=== PATIENT | male | born 1945 | race Caucasian/White ===

== ENCOUNTER 2024-09-05 18:16 | Inpatient (IN) | payer OTHER, SELFPAY ==
[2024-09-05] VITALS (7 sets, daily range): BP systolic 126–161; BP diastolic 68–99; BMI 30.5
[2024-09-05 13:38] LABS: Glucose - Point of Care 463 mg/dl (70-99)
--- NOTE | 2024-09-05 13:55 | ED.GENMED ---
History of Present Illness
General
Chief Complaint: Blood Sugar Problem
Source: patient
Exam Limitations: none
Time Seen by Provider: 09/05/24 13:34
Nursing documentation reviewed up to this point in time: agreed with
History of Present Illness
History of Present Illness:
78-year-old male past medical history of stroke, [place] presenting to the emergency department after he was helping his friend move some boxes felt lightheaded fell to the ground was described as losing consciousness having some few seconds of. He says
when he woke up he was being asked a lot of questions felt mildly confused at the time but at this point is fully asymptomatic denies any specific symptoms at this time. Otherwise felt well prior. According to EMS arrival his blood sugar levels
was 68 which increased to 129 after receiving oral glucose
Review of Systems
Review of Systems
Allergies reviewed?: Yes
All Other Systems: ROS reviewed and negative except as documented in HPI and ROS
Phy Exam
Physical Exam
Physical Exam:
GENERAL: Alert , in no apparent distress
EYE: pupils equal and reactive
NECK: Supple, no significant adenopathy.
ENT: o/p clr, mmm.
CARDIAC: Central chest with a red rash mild tenderness to palpation. No bleeding. Regular rate and rhythm .
LUNGS: Clear breath sounds bilaterally, no acute respiratory distress, no wheezes/rales/rhonchi
ABDOMEN: Soft, without focal tenderness, no r/g, no cvat
NEUROLOGICAL: Alert and oriented, no focal neuro deficits
SKIN: Warm and dry, skin intact.
MUSCULOSKELETAL: No edema, well perfused.
PSYCH: Normal and appropriate interaction.
Course
Orders/Labs/Results
Orders:
Orders
09/05/24 13:38
EKG [Electrocardiogram (*1)] Urgent
Reason for Study: Fatigue / Weakness
EKG- Treatment ONCE
09/05/24 13:40
CMP [Comprehensive Metabolic Panel] Urgent
Complete Blood Count/With Diff Urgent
Magnesium Urgent
Comment: ADD ON
09/05/24 13:43
CXR2 [CR Chest - 2 Views ] Urgent
Comment:
Reason For Exam: abrasion on chest
09/05/24 13:44
Troponin I Urgent
09/05/24 14:21
0.9% Sodium Chloride 1000 ml [Nss] 1,000 ml IV BOLUS
09/05/24 14:28
CT Head W/o Iv Contrast Urgent
Comment:
Reason For Exam: new onset seizure
09/05/24 14:29
Add On- LAB Urgent
Tests Added?: magnesium
09/05/24 15:15
Lactic Acid Urgent
09/05/24 16:04
Urinalysis Reflex To Culture Urgent
Date Specimen was Collected: 09/05/24
Time Specimen was Collected: 15:59
Urine Microscopic Reflex Cult Urgent
09/05/24 17:16
Add On- LAB Urgent
Tests Added?: prolactin, UDS, creatine kinase
09/05/24 17:17
MRI Brain [MR Brain Without Contrast] Urgent
Comment:
Reason For Exam: seziure
Recent pill cam endoscopy?: No
Abnormal Lab Results
09/05/24 09/05/24 09/05/24
13:36 13:40 15:15
MCV 99.0 H fL
(80.0-94.0)
MCH 34.0 H pg
(27.0-31.0)
Plt Count 112 L 10^3/uL
(130-400)
MPV 10.6 H fL
(7.4-10.4)
Immature Gran % 0.8 H %
(0-0.5)
Chloride 110 H mmol/L
(98-107)
Carbon Dioxide 20 L mmol/L
(22-30)
BUN 22 H mg/dl
(9-20)
Glucose 102 H mg/dl
(70-99)
Lactic Acid 2.1 H mmol/L
(0.7-2.0)
Ur Occult Blood Reflex
Urine Albumin (Reflex)
POC Glucose 463 H* mg/dl
(70-99)
09/05/24
16:04
MCV
MCH
Plt Count
MPV
Immature Gran %
Chloride
Carbon Dioxide
BUN
Glucose
Lactic Acid
Ur Occult Blood Reflex Trace A
(Negative)
Urine Albumin (Reflex) 2+ A
(Neg - Trace)
POC Glucose
09/05/24 13:40
09/05/24 13:40
Vital Signs
Initial and Last Documented VS:
Initial Vital Signs
Temp Pulse Resp
97.7 F 77 22
09/05/24 13:34 09/05/24 13:34 09/05/24 13:34
Last Documented Vital Signs
Temp Pulse Resp BP Pulse Ox
97.7 F 68 21 161/79 95
09/05/24 13:34 09/05/24 17:30 09/05/24 17:30 09/05/24 17:00 09/05/24 17:30
MDM/Problems Addressed
MDM/Problems Addressed:
78-year-old male presenting to the emergency department today after an episode where he felt lightheaded passed out to the ground had a brief episode of jerking movement otherwise is asymptomatic at this point. He was found to have slightly low
sugar level of 60 via EMS and was given sugar at the scene with increasing sugar level to 129. He denies any current symptoms denies any symptoms prior to the episode.
Update 1400: Patient's family arrived including spouse and brother that witnessed the event. He claims that he seemed to feel lightheaded they helped him to the ground without specific trauma. He then had full body convulsions that was described
as at least 10 minutes. He then woke up after multiple sternal rubs. He seemed to be very confused and was thrashing around for a few minutes but then seemed to calm down by the time that EMS arrived. He was very confused for additional 10 to 15
minutes or so after the event and then EMS arrived at the scene. Here patient asymptomatic throughout stay labs showing slightly elevated chloride normal sodium slightly elevated lactic acid of 2.1 normal glucose of [address]
normal. Case discussed with neurology additional testing and MRI. Patient will be admitted for further evaluation.
*Critical Care Note
Total Time (30-74mins, 75-104mins- exclusive of procedures): Not Applicable
ED Attending Note
-
Portions of this chart may have been created with voice recognition software.� Occasional wrong word or��sound alike� substitutions may have occurred due to the inherent limitations of voice recognition software.
Discharge Plan
Departure
Patient Disposition: Admit
Date of Disposition: 09/05/24
Time of Disposition: 17:44
Admit to: Telemetry
Admit to doctor: Jeffery
Presentation/result/management discussed w/ accepting MD/DO: Hospitalist
Patient with high blood pressure during this ER visit?: No
Condition: Good
Covid-19: Not Applicable
Discharge Problem:
Observed seizure-like activity
Prescriptions:
No Action
metoprolol succinate 50 mg tablet extended release 24 hr
50 mg PO DAILY
valacyclovir 500 mg tablet
500 mg PO DAILY
meloxicam 7.5 mg tablet
7.5 mg PO DAILY
pantoprazole 40 mg tablet,delayed release (DR/EC)
40 mg PO DAILY
erythromycin 5 mg/gram (0.5 %) ointment
1 applic LEFT EYE BID
allopurinol 300 mg tablet
300 mg PO DAILY
ramipril 5 mg capsule
5 mg PO DAILY
ezetimibe 10 mg tablet
10 mg PO DAILY
cyclosporine [Restasis] 0.05 % dropperette
1 drp LEFT EYE BID
omega-3 acid ethyl esters 1 gram capsule
4 g PO DAILY
fenofibrate nanocrystallized 145 mg tablet
145 mg PO DAILY
aspirin 81 mg Tablet,Delayed Release (Dr/Ec)
81 mg PO DAILY
Referrals:
Lorenzo Wallace DO [Family Provider] -
Interventions
Interventions:
*Risk Screen - Suicide Last Done: 09/05/24 13:45
*General Assessment Last Done: 09/05/24 13:45
*Neglect/Abuse Screening Last Done: 09/05/24 13:45
ED- Fall Risk Assessment Last Done: 09/05/24 13:46
*ED COVID-19 Vaccine History Last Done: 09/05/24 13:45
ED- Neurological Assessment Last Done: 09/05/24 13:41
Discharge Date and Time
Print Language: KITTITIAN
[2024-09-05 14:02] LABS: % Eosinophils 3.1 % (0-6); % Immature Granulocytes 0.8 % (0-0.5); % Monocytes 7.1 % (1.7-9.3); Absolute Basophils 0.1 10^3/uL (0-0.2); Absolute Eosinophils 0.2 10^3/uL (0-0.7); Absolute Lymphocytes 1.2 10^3/uL (1.2-3.4); Absolute Monocytes 0.4 10^3/uL (0.1-0.6); Absolute Neutrophils 3.4 10^3/uL (1.4-6.5); Hematocrit 47.5 % (39.0-52.0); Hemoglobin 16.3 g/dL (13.0-18.0); Mean Corp Hgb Conc. 34.3 g/dL (33.0-37.0); Mean Platelet Volume 10.6 fL (7.4-10.4); Nucleated Red Blood Cells % 0 % (-); Platelet Count 112 10^3/uL (130-400); Red Cell Dist. Width 13.7 % (11.5-14.5); White Blood Cell Count 5.2 10^3/uL (4.8-10.8)
[2024-09-05 14:07] LABS: ALT (SGPT) 23 U/L (0-50); AST (SGOT) 45 U/L (17-59); Albumin 4.6 g/dl (3.5-5.0); Alkaline Phosphatase 42 U/L (38-126); Blood Urea Nitrogen 22 mg/dl (9-20); Calcium 9.3 mg/dl (8.4-10.2); Carbon Dioxide 20 mmol/L (22-30); Chloride 110 mmol/L (98-107); Glucose 102 mg/dl (70-99); Sodium 145 mmol/L (135-145); Total Bilirubin 0.6 mg/dl (0.2-1.3); Total Protein 7.3 g/dl (6.3-8.2); eGFR 56.58
[2024-09-05 14:41] LABS: Troponin I < 0.012 ng/ml
[2024-09-05 14:57] LABS: Magnesium 1.7 mg/dl (1.6-2.3)
[2024-09-05] MEDS: NSS 1000 IV (15:16)
[2024-09-05 15:33] LABS: Lactic Acid 2.1 mmol/L (0.7-2.0)
[2024-09-05 16:34] LABS: Urine Albumin 2+ (Neg - Trace); Urine Bilirubin Negative (Negative); Urine Color Yellow; Urine Glucose Negative (Negative); Urine Ketone Negative (Negative); Urine Leukocyte Negative (Negative); Urine Nitrite Negative (Negative); Urine Occult Blood Trace (Negative); Urine Urobilinogen Negative (Neg - 1+)
[2024-09-05 16:55] LABS: Urine Squamous Cell 0-2 /LPF (Few)
[2024-09-05 16:56] LABS: Urine Hyaline Cast 0-2 /LPF (0-2)
[2024-09-05 16:57] LABS: Urine Red Blood Cell 0-2 /HPF (0-2); Urine Sperm Seen; Urine White Cell 0-2 /HPF (0-5)
[2024-09-05 17:03] LABS: Urine Character Clear (Clear)
--- NOTE | 2024-09-05 17:41 | HPS.HSE ---
Family Physician
<Nick Martines MD - Last Filed: 09/06/24 08:22>
-
Family Physician: Lorenzo Wallace
Chief Complaint
<Nick Martines MD - Last Filed: 09/06/24 08:22>
-
AMS, poss seizure
History of Present Illness
78-year-old male with a past medical history of CVA, IA, HTN, HL, gout, and GERD presents with altered mental status and tonic-clonic shaking concerning for new onset seizure activity. Patient was helping his sister in law move some boxes. Family
reports patient feeling lightheaded, and lost consciousness. Family said that there was full body shaking movements for 10-15 minutes, followed by 15 minutes of confusion. EMS arrived, found his blood sugar to be 68, which increased to 129 after
receiving oral glucose.
Medical History
<Nick Martines MD - Last Filed: 09/06/24 08:22>
Past Medical History
Past Medical History: Reports Other
Additional Past Medical History:
CVA
IA
HTN
HL
Gout
GERD
OA
Past Surgical History: Reports Appendectomy and Other (Right wrist surgery, left eye corneal transplant)
Social History
Tobacco: Former Smoker
Alcohol: Occasional
Drug: None
Personal:
Living: With Family
Family History
Family History: Other (No family history of seizures)
Allergies / Home Medications
Allergies reflects when Allergies were last updated in [facility].
Home Medications with original date entered in [facility]
Allergy/Medication List:
Allergies
Allergy/AdvReac Type Severity Reaction Status Date / Time
No Known Allergies Allergy Verified 09/05/24 14:29
Home Medications Table - record
�Medication �Instructions �Recorded �Confirmed
allopurinol 300 mg tablet 300 mg PO DAILY 09/05/24 09/05/24
aspirin 81 mg tablet,delayed 81 mg PO DAILY 09/05/24 09/05/24
release
cyclosporine 0.05 % eye drops in a 1 drp LEFT EYE BID 09/05/24 09/05/24
dropperette (Restasis)
erythromycin 5 mg/gram (0.5 %) eye 1 applic LEFT EYE BID 09/05/24 09/05/24
ointment
ezetimibe 10 mg tablet 10 mg PO DAILY 09/05/24 09/05/24
fenofibrate nanocrystallized 145 145 mg PO DAILY 09/05/24 09/05/24
mg tablet
meloxicam 7.5 mg tablet 7.5 mg PO DAILY 09/05/24 09/05/24
metoprolol succinate 50 mg 50 mg PO DAILY 09/05/24 09/05/24
tablet,extended release 24 hr
omega-3 acid ethyl esters 1 gram 4 g PO DAILY 09/05/24 09/05/24
capsule
pantoprazole 40 mg tablet,delayed 40 mg PO DAILY 09/05/24 09/05/24
release
ramipril 5 mg capsule 5 mg PO DAILY 09/05/24 09/05/24
valacyclovir 500 mg tablet 500 mg PO DAILY 09/05/24 09/05/24
Review of Systems
<Nick Martines MD - Last Filed: 09/06/24 08:22>
-
A 12 point ROS was completed and negative except as noted: Yes
Physical Exam
<Nick Martines MD - Last Filed: 09/06/24 08:22>
Vital Signs
Vital Signs
Temp Pulse Resp BP Pulse Ox
97.7 F 68 21 161/79 95
09/05/24 13:34 09/05/24 17:30 09/05/24 17:30 09/05/24 17:00 09/05/24 17:30
<Vinny Gil MD - Last Filed: 09/05/24 19:07>
Physical Exam
General: Well Developed, Well Nourished and No Apparent Distress
HEENT: NormoCephalic, Moist mucous membranes and Atraumatic
Respiratory: Clear
Cardiac: S1/S2 and Regular Rhythm; No Murmur or Rub
GI: Soft, Non Tender, Non Distended and Normal Bowel Sounds; No Organomegaly
Rectal: Deferred by Provider
Musculoskeletal: No Clubbing, No Cyanosis and No Edema
Skin: No Rash
Neuro: Nonfocal/grossly intact
Laboratory Results
<Nick Martines MD - Last Filed: 09/06/24 08:22>
-
09/05/24 13:40
09/05/24 13:40
Laboratory Results
Lactic Acid 2.1 mmol/L (0.7-2.0) H 09/05/24 15:15
Total Bilirubin 0.6 mg/dl (0.2-1.3) 09/05/24 13:40
AST 45 U/L (17-59) 09/05/24 13:40
ALT 23 U/L (0-50) 09/05/24 13:40
Alkaline Phosphatase 42 U/L (38-126) 09/05/24 13:40
Troponin I < 0.012 ng/ml 09/05/24 13:44
Impression/Plan
<Nick Martines MD - Last Filed: 09/06/24 08:22>
-
#Altered mental status
#Possible seizure activity
Head CT neg
Consult neurology, follow-up brain MRI
Check CK, prolactin, urine analysis, UDS
Neurology recommends maintain off AED for now
Ordered Ativan 2 mg IV as needed seizure activity
#History of IA
#History of CVA
Continue aspirin, Zetia, Tricor
#Essential hypertension
Continue metoprolol, ramipril
#Hyperlipidemia
Continue Zetia, Tricor
#GERD
Continue PPI
#Gout
Continue allopurinol
#Osteoarthritis of the knees
Continue Mobic
DVT prophylaxis�subcu Lovenox
Full code
Updated family at bedside 09/05
Total time spent to see the patient on the floor, examine the patient, review data and lab results, discuss treatment plan with patient, nursing staff around 60 minutes.
[2024-09-05 18:06] LABS: Creatine Phosphokinase 135 U/L (55-170)
[2024-09-05 18:21] LABS: Amphetamines Negative (Negative); Barbiturates Negative (Negative); Benzodiazepines Negative (Negative); Buprenorphine Negative (Negative); Cocaine Negative (Negative); Marijuana Negative (Negative); Methadone Negative (Negative); Methamphetamines Negative (Negative); Opiates Negative (Negative); Phencyclidine Negative (Negative); Tricyclic Antidepressants Negative (Negative)
[2024-09-05 18:23] LABS: Prolactin 26.5 ng/ml (3.7-17.9)
[2024-09-05] MEDS: 0.45%NACL 1000 IV (20:50)
[2024-09-05] MEDS: LOVENOX 40 MG SC (20:51)
[2024-09-05] MEDS: RESTASIS 0.05% OPHTHALMIC EMULSION 1 DROPS LEFT EYE (20:52)
[2024-09-05] MEDS: ERYTHROMYCIN 0.5% OPHTHALMIC OINTMENT 1 APPLIC LEFT EYE (20:53)
[2024-09-05 21:24] LABS: Glucose - Point of Care 274 mg/dl (70-99)
--- NOTE | 2024-09-05 21:53 | PTCARENOTE ---
Pt received at 1999. Pt able to stand and walk from stretcher to bed. Pt AAOX3, VSS, and oriented to room. No c/o pain/discomfort reported at this time. No seizure activity noted at this time. Seizure precautions in place, pt NSR on tele. Pt able to
make needs known, call clarke within reach
[2024-09-06] VITALS (8 sets, daily range): BP systolic 147–168; BP diastolic 64–79
[2024-09-06 07:56] LABS: Hematocrit 42.5 % (39.0-52.0); Hemoglobin 14.1 g/dL (13.0-18.0); Mean Corp Hgb Conc. 33.2 g/dL (33.0-37.0); Mean Corpuscular Volume 99.5 fL (80.0-94.0); Mean Platelet Volume 11.5 fL (7.4-10.4); Platelet Count 107 10^3/uL (130-400); Red Blood Cell Count 4.27 10^6/uL (4.70-6.10); Red Cell Dist. Width 14.1 % (11.5-14.5); White Blood Cell Count 5.9 10^3/uL (4.8-10.8)
[2024-09-06] MEDS: ERYTHROMYCIN 0.5% OPHTHALMIC OINTMENT 1 APPLIC LEFT EYE ×2 (08:01→19:14)
[2024-09-06] MEDS: ZETIA 10 MG PO (08:01)
[2024-09-06] MEDS: ALTACE 5 MG PO (08:01)
[2024-09-06] MEDS: RESTASIS 0.05% OPHTHALMIC EMULSION 1 DROPS LEFT EYE ×2 (08:01→19:14)
[2024-09-06] MEDS: TOPROL XL 50 MG PO (08:01)
[2024-09-06] MEDS: ASPIR LOW (ENTERIC COATED) 81 MG PO (08:01)
[2024-09-06] MEDS: MOBIC 7.5 MG PO (08:01)
[2024-09-06] MEDS: PROTONIX 40 MG PO (08:01)
[2024-09-06] MEDS: TRICOR 145 MG PO (08:01)
[2024-09-06] MEDS: VALTREX 500 MG PO (08:04)
[2024-09-06] MEDS: ZYLOPRIM 300 MG PO (08:04)
--- NOTE | 2024-09-06 08:12 | CON.NEURO ---
Consultation
Order
Date of Consultation: 09/06/24
Requesting Provider: Nick Martines MD
Reason for Consult: seizure
CC: passed out
HPI: This is an 78-year-old man who presented to [facility] on September 05, 2024 with a spell.
Mr. Valencia states that he 'passed out'. He reportedly was walking into the house after carrying a box when he suddenly lost consciousness. His spouse observed that his left knee gave out, his legs wobbled, and he collapsed, stiffening up with eyes
half-open. The episode lasted approximately 15 minutes, during which he had 'moisture' around his mouth. No reports of facial weakness, rhythmic movements, UI, tongue injury, cyanosis.
The patient received oral glucose of FS of 60. Mr. Valencia remembers paramedics arriving to the house he was in. Based on EMS report the patient was confused, crying but consolable. Upon arrival at the ER in the ED staff removed his shirt and the
patient had a large fresh red shelley to the sternal area. Patient did not know that got there and denies any pain. Shelley looks like someone did CPR. No family member or [employer] on the scene stated that CPR was done. No BP recording is
available HR 94.
The patient denies any history of seizures, head trauma, encephalitis, or meningitis. He reports being fully independent in daily activities, including walking and driving, and manages his medications independently, except for assistance with eye
drops. He denies any recent changes in medications
ER VS: 139/79, 77, afebrile.
Glucose-463 (13:36).
EKG: NSR, QTc Int : 444 m
PDMP:Tramadol Hcl 50 Mg�30 tabs filled in on 04/11/2024, 07/05/2024
Labs: gluc 87m normal Na, WBC, lactic acid-2.1, Mg-1.7, normal Ca, prolactin-25.5(3.7-17.9)
Brain MRI wo callie-moderate atrophy with sequelae of moderate small vessel ischemic disease. Scattered foci of blooming artifact within the bilateral basal ganglia as well as the bilateral parietal and frontal lobes consistent with prior
microhemorrhage.
Routine EEG(09/06/2024) PDR slowing, no epileptiform abnormalities.
PMH: CAD, h/o stroke, thrombocytopenia, HTN, DLP, gout, BPH
PSH: BL cataract surgery, L corneal transplant, right wrist surgery, appendectomy
SH:; retired; former smoker; +social ET[employer] use
FH:not contributory to current presentation
All:NKDA
ROS:Constitutional: Negative. Negative for chills, fever and unexpected weight change.
HENT: Negative for ear pain, hearing loss, tinnitus and trouble swallowing.
Eyes: positive for impaired vision
Respiratory: Negative for cough, choking and shortness of breath.
Cardiovascular: Negative for chest pain, palpitations and leg swelling.
Gastrointestinal: Negative for abdominal pain and vomiting.
Endocrine: Negative. Negative for cold intolerance.
Genitourinary: positive for urinary urgency.
Musculoskeletal: Negative for back pain, gait problem, neck pain and neck stiffness.
Skin: Negative for rash.
Allergic/Immunologic: Negative. Negative for immunocompromised state.
Neurological: positive for a spell
Psychiatric/Behavioral: Negative for behavioral problems, confusion and hallucinations.
General: Well developed. In no acute distress. Masked facies
Cardio: Regular rate and rhythm without murmur. Extremities are without cyanosis or edema.
Neuro:
Mental Status: Alert, oriented to person, place, and date. Normal attention and recall. Good fund of knowledge. Follows complex requests across the midline. Comprehension, naming, and repetition intact. I
Cranial Nerves: . Pupils are equally round and reactive to light. EOMs full. Visual burdick full to confrontation. No ptosis. No nystagmus. V1-V3 intact to light touch and pinprick bilaterally, symmetric. Face symmetric. Normal hearing AU.
The palate elevated well. SCMs and traps 5/5. Tongue midline. No dysarthria.
Motor: Normal bulk and tone. No pronator or arm drift. Strength 5/5 throughout. No clonus.
Reflexes: limited exam due to positioning
Sensory: normal vibration at the ankles and toes
Coordination: No dysmetria or tremor.
Gait: deferred
Assessment and Plan:
I. Symptomatic seizure
II. Cerebral microvascular disease with microhemorrhages. ? Amyloid angiopathy
III. Hypoglycemia, hypomagnesia
-Fall and seizure precautions
-Hypoglycemia workup
-No AED
-No driving for 6 months
-OP neurology follow up in 2-3 weeks
I personally reviewed all radiology and labs along with past medical records pertinent to current medical problems. Total time spent in patient care is 60 minutes.
Thank you for allowing us to participate in the care of this patient. Please do not hesitate to contact us with any questions or concerns.
Subjective/Objective
Subjective Data
Date of Service: September 06, 2024
Objective Data
Vital Signs
Temp Pulse Resp BP Pulse Ox
36.6 C 59 18 150/71 95
09/06/24 07:08 09/06/24 07:08 09/06/24 07:08 09/06/24 07:08 09/06/24 07:08
Lab Results
09/06/24 06:38
Sodium 145 mmol/L (135-145) 09/05/24 13:40
Potassium 4.0 mmol/L (3.5-5.1) 09/05/24 13:40
BUN 22 mg/dl (9-20) H 09/05/24 13:40
Glucose 102 mg/dl (70-99) H 09/05/24 13:40
Calcium 9.3 mg/dl (8.4-10.2) 09/05/24 13:40
Ur Buprenorphine Negative (Negative) 09/05/24 16:04
Patient Allergies
No Known Allergies Allergy (Verified 09/05/24 14:29)
Medications
-
Active Medications
Generic Name Dose Route Start Last Admin
Trade Name Freq PRN Reason Stop Dose Admin
Acetaminophen 650 mg 09/05/24 19:41
Acetaminophen 325 Mg Tablet PO 10/03/24 19:40
Q4HPRN PRN
mild pain/HENSON/temp> 100.4F
Al Hydrox/Mg Hydrox/Simethicone 30 ml 09/05/24 19:41
Mag/Al/Simethicone Suspension 30 Ml Cup PO 10/03/24 19:40
Q6HPRN PRN
Heartburn
Allopurinol 300 mg 09/06/24 08:00
Allopurinol 300 Mg Tablet PO 10/04/24 07:59
DAILY CHIKA
Aspirin 81 mg 09/06/24 08:00
Aspirin 81 Mg (Enteric Coated) Tablet PO 10/04/24 07:59
DAILY CHIKA
Cyclosporine 1 drops 09/05/24 20:00 09/05/24 20:52
Cyclosporine 0.05% (Ophthalmic Emulsion) 10 Drop Droperette LEFT EYE 10/03/24 19:59 1 drops
BID CHIKA Administration
Ezetimibe 10 mg 09/06/24 08:00
Ezetimibe (Zetia) 10 Mg Tablet PO 10/04/24 07:59
DAILY CHIKA
Enoxaparin Sodium 40 mg 09/05/24 19:41 09/05/24 20:51
Enoxaparin Sodium 40 Mg/0.4 Ml Syringe SC 10/03/24 19:40 40 mg
QPM CHIKA Administration
Erythromycin 0 applic 09/05/24 20:00 09/05/24 20:53
Erythromycin 0.5% (Ophthalmic Ointment) 1 Gram Tube LEFT EYE 09/15/24 19:59 1 applic
BID CHIKA Administration
Fenofibrate 145 mg 09/06/24 08:00
Fenofibrate 145 Mg Tablet PO 10/04/24 07:59
DAILY CHIKA
Sodium Chloride 1,000 mls @ 75 mls/hr 09/05/24 19:41 09/05/24 20:50
0.45%Nacl IV 1,000 mls
.[id number] CHIKA Administration
Lorazepam 2 mg 09/05/24 19:41
Lorazepam 2 Mg/Ml Vial IV 10/03/24 19:40
Q4HPRN PRN
prolonged seizure
Meloxicam 7.5 mg 09/06/24 08:00
Meloxicam (Mobic) 7.5 Mg Tablet PO 10/04/24 07:59
DAILY CHIKA
Metoprolol Succinate 50 mg 09/06/24 08:00
Metoprolol 50 Mg Extended Release Tablet PO 10/04/24 07:59
DAILY CHIKA
Ondansetron HCl 4 mg 09/05/24 19:41
Ondansetron 4 Mg/2 Ml Vial IV 10/03/24 19:40
Q6HPRN PRN
nausea and vomiting
Oxycodone HCl 5 mg 09/05/24 19:41
Oxycodone 5 Mg Regular Release Tablet PO 09/19/24 19:40
Q4HPRN PRN
moderate pain
Pantoprazole Sodium 40 mg 09/06/24 08:00
Pantoprazole 40 Mg Delayed Release Tablet PO 10/04/24 07:59
DAILY CHIKA
Ramipril 5 mg 09/06/24 08:00
Ramipril (Altace) 5 Mg Capsule PO 10/04/24 07:59
DAILY CHIKA
Senna/Docusate Sodium 1 tablet 09/05/24 19:41
Docusate W/Senna (Katie-Colace) Tablet PO 10/03/24 19:40
BIDPRN PRN
constipation
Sodium Chloride 0 flush 09/05/24 20:00
Sodium Chloride 0.9% (Flush) Syringe IV 10/03/24 19:59
PER PROTOCOL CHIKA
Sodium Chloride 1 ml 09/05/24 19:58
Nss (Pf) 10 Ml Vial For Ativan 2 Mg Dose IV 10/03/24 19:57
Q4HPRN PRN
IV LORAZEPAM DILUTION
Valacyclovir HCl 500 mg 09/06/24 08:00
Valacyclovir Hcl 500 Mg Tablet PO 09/16/24 07:59
DAILY CHIKA
Home Medications
�Medication �Instructions �Recorded
allopurinol 300 mg tablet 300 mg PO DAILY Gout 09/05/24
aspirin 81 mg tablet,delayed 81 mg PO DAILY Blood Clot 09/05/24
release Prevention/Tx
cyclosporine 0.05 % eye drops in a 1 drp LEFT EYE BID DRY EYES 09/05/24
dropperette (Restasis)
erythromycin 5 mg/gram (0.5 %) eye 1 applic LEFT EYE BID Eye Condition 09/05/24
ointment
ezetimibe 10 mg tablet 10 mg PO DAILY High Cholesterol 09/05/24
fenofibrate nanocrystallized 145 145 mg PO DAILY High Cholesterol 09/05/24
mg tablet
meloxicam 7.5 mg tablet 7.5 mg PO DAILY Pain 09/05/24
metoprolol succinate 50 mg 50 mg PO DAILY Heart 09/05/24
tablet,extended release 24 hr Disease/Condition
omega-3 acid ethyl esters 1 gram 4 g PO DAILY 09/05/24
capsule
pantoprazole 40 mg tablet,delayed 40 mg PO DAILY Gastrointestinal 09/05/24
release Issue
ramipril 5 mg capsule 5 mg PO DAILY Blood Pressure 09/05/24
valacyclovir 500 mg tablet 500 mg PO DAILY Infection 09/05/24
Vital Signs and Labs
-
Vital Signs and Labs:
Vital Signs
Temp Pulse Resp BP Pulse Ox
36.4 C 54 17 154/64 95
09/06/24 12:20 09/06/24 12:20 09/06/24 12:20 09/06/24 12:20 09/06/24 12:20
Lab Results
09/06/24 06:38
09/06/24 06:38
Sodium 144 mmol/L (135-145) 09/06/24 06:38
Potassium 3.9 mmol/L (3.5-5.1) 09/06/24 06:38
BUN 21 mg/dl (9-20) H 09/06/24 06:38
Glucose 87 mg/dl (70-99) 09/06/24 06:38
Calcium 8.9 mg/dl (8.4-10.2) 09/06/24 06:38
Ur Buprenorphine Negative (Negative) 09/05/24 16:04
Medications
-
Medications:
Generic Name Dose Route Start Last Admin
Trade Name Freq PRN Reason Stop Dose Admin
Acetaminophen 650 mg 09/05/24 19:41
Acetaminophen 325 Mg Tablet PO 10/03/24 19:40
Q4HPRN PRN
mild pain/HENSON/temp> 100.4F
Al Hydrox/Mg Hydrox/Simethicone 30 ml 09/05/24 19:41
Mag/Al/Simethicone Suspension 30 Ml Cup PO 10/03/24 19:40
Q6HPRN PRN
Heartburn
Allopurinol 300 mg 09/06/24 08:00 09/06/24 08:04
Allopurinol 300 Mg Tablet PO 10/04/24 07:59 300 mg
DAILY CHIKA Administration
Aspirin 81 mg 09/06/24 08:00 09/06/24 08:01
Aspirin 81 Mg (Enteric Coated) Tablet PO 10/04/24 07:59 81 mg
DAILY CHIKA Administration
Cyclosporine 1 drops 09/05/24 20:00 09/06/24 08:01
Cyclosporine 0.05% (Ophthalmic Emulsion) 10 Drop Droperette LEFT EYE 10/03/24 19:59 1 drops
BID CHIKA Administration
Ezetimibe 10 mg 09/06/24 08:00 09/06/24 08:01
Ezetimibe (Zetia) 10 Mg Tablet PO 10/04/24 07:59 10 mg
DAILY CHIKA Administration
Enoxaparin Sodium 40 mg 09/05/24 19:41 09/05/24 20:51
Enoxaparin Sodium 40 Mg/0.4 Ml Syringe SC 10/03/24 19:40 40 mg
QPM CHIKA Administration
Erythromycin 0 applic 09/05/24 20:00 09/06/24 08:01
Erythromycin 0.5% (Ophthalmic Ointment) 1 Gram Tube LEFT EYE 09/15/24 19:59 1 applic
BID CHIKA Administration
Fenofibrate 145 mg 09/06/24 08:00 09/06/24 08:01
Fenofibrate 145 Mg Tablet PO 10/04/24 07:59 145 mg
DAILY CHIKA Administration
Sodium Chloride 1,000 mls @ 75 mls/hr 09/05/24 19:41 09/06/24 11:54
0.45%Nacl IV 1,000 mls
.[id number] CHIKA Administration
Lorazepam 2 mg 09/05/24 19:41
Lorazepam 2 Mg/Ml Vial IV 10/03/24 19:40
Q4HPRN PRN
prolonged seizure
Meloxicam 7.5 mg 09/06/24 08:00 09/06/24 08:01
Meloxicam (Mobic) 7.5 Mg Tablet PO 10/04/24 07:59 7.5 mg
DAILY CHIKA Administration
Metoprolol Succinate 50 mg 09/06/24 08:00 09/06/24 08:01
Metoprolol 50 Mg Extended Release Tablet PO 10/04/24 07:59 50 mg
DAILY CHIKA Administration
Ondansetron HCl 4 mg 09/05/24 19:41
Ondansetron 4 Mg/2 Ml Vial IV 10/03/24 19:40
Q6HPRN PRN
nausea and vomiting
Oxycodone HCl 5 mg 09/05/24 19:41
Oxycodone 5 Mg Regular Release Tablet PO 09/19/24 19:40
Q4HPRN PRN
moderate pain
Pantoprazole Sodium 40 mg 09/06/24 08:00 09/06/24 08:01
Pantoprazole 40 Mg Delayed Release Tablet PO 10/04/24 07:59 40 mg
DAILY CHIKA Administration
Ramipril 5 mg 09/06/24 08:00 09/06/24 08:01
Ramipril (Altace) 5 Mg Capsule PO 10/04/24 07:59 5 mg
DAILY CHIKA Administration
Senna/Docusate Sodium 1 tablet 09/05/24 19:41
Docusate W/Senna (Katie-Colace) Tablet PO 10/03/24 19:40
BIDPRN PRN
constipation
Sodium Chloride 0 flush 09/05/24 20:00
Sodium Chloride 0.9% (Flush) Syringe IV 10/03/24 19:59
PER PROTOCOL CHIKA
Sodium Chloride 1 ml 09/05/24 19:58
Nss (Pf) 10 Ml Vial For Ativan 2 Mg Dose IV 10/03/24 19:57
Q4HPRN PRN
IV LORAZEPAM DILUTION
Valacyclovir HCl 500 mg 09/06/24 08:00 09/06/24 08:04
Valacyclovir Hcl 500 Mg Tablet PO 09/16/24 07:59 500 mg
DAILY CHIKA Administration
Home Medications
-
Home Medications
allopurinol 300 mg tablet 300 mg PO DAILY Gout 09/05/24
aspirin 81 mg tablet,delayed release 81 mg PO DAILY Blood Clot Prevention/Tx 09/05/24
cyclosporine 0.05 % eye drops in a dropperette (Restasis) 1 drp LEFT EYE BID DRY EYES 09/05/24
erythromycin 5 mg/gram (0.5 %) eye ointment 1 applic LEFT EYE BID Eye Condition 09/05/24
ezetimibe 10 mg tablet 10 mg PO DAILY High Cholesterol 09/05/24
fenofibrate nanocrystallized 145 mg tablet 145 mg PO DAILY High Cholesterol 09/05/24
meloxicam 7.5 mg tablet 7.5 mg PO DAILY Pain 09/05/24
metoprolol succinate 50 mg tablet,extended release 24 hr 50 mg PO DAILY Heart Disease/Condition 09/05/24
omega-3 acid ethyl esters 1 gram capsule 4 g PO DAILY 09/05/24
pantoprazole 40 mg tablet,delayed release 40 mg PO DAILY Gastrointestinal Issue 09/05/24
ramipril 5 mg capsule 5 mg PO DAILY Blood Pressure 09/05/24
valacyclovir 500 mg tablet 500 mg PO DAILY Infection 09/05/24
--- NOTE | 2024-09-06 08:49 | W.PN.HOSP.TC ---
Today's Communication/Plan
-
Discharge tomorrow
Assessment / Plan
Assessment / Plan
HPI: 78-year-old male with a past medical history of CVA, [place], HTN, HL, gout, and GERD presents with altered mental status and tonic-clonic shaking concerning for new onset seizure activity. Patient was helping his sister in law move some boxes.
Family reports patient feeling lightheaded, and lost consciousness. Family said that there was full body shaking movements for 10-15 minutes, followed by 15 minutes of confusion. EMS arrived, found his blood sugar to be 68, which increased to 129
after receiving oral glucose.
# First seizure episode
Head CT neg, brain MRI shows atrophy, cerebral microvascular disease with microhemorrhages
Appreciate neurology input, no clear reason for his seizure episode
Neurology recommends maintain off AED for now
Ordered Ativan 2 mg IV as needed seizure activity
Cleared by neurology for discharge, no driving
#Hypoglycemia
Patient was moving boxes and EMS found his blood sugar to be 60
Fasting blood sugar this morning was 87 at 6:30 AM
Check hemoglobin A1c
#Elevated prolactin
Neurology rec supportive care if epileptic seizure in absence of pituitary mass
#History of WA
#History of CVA
Continue aspirin, Zetia, Tricor
#Essential hypertension
Continue metoprolol, ramipril
#Hyperlipidemia
Continue Zetia, Tricor
#GERD
Continue PPI
#Gout
Continue allopurinol
#Osteoarthritis of the knees
Continue Mobic
#Obesity due to excess calories
Affects all aspects of care
DVT prophylaxis�subcu Lovenox
Full code
Updated family at bedside 09/06
Total time spent to see the patient on the floor, examine the patient, review data and lab results, discuss treatment plan with patient, nursing staff around 51 minutes.
Physical Exam
General: No acute distress
HEENT: Normocephalic, Atraumatic, EOMI, MMM
Respiratory: Clear to Auscultation bilaterally
Cardiac: Normal S1/S2, Regular Rate and Rhythm
GI: Soft, Nontender, Nondistended, Normal Bowel Sounds
Extremities: No Clubbing, Cyanosis, or Edema
Neuro: Nonfocal/Grossly Intact
Psych: Calm, Cooperative
Derm: No Visible lesions
Anticipated Discharge: Within 24 hours
Subjective/Interval History
-
Date of Service: September 06, 2024
No more recurrence of seizure activity. No fever, no vomiting. No chest pain, no shortness of breath.
Objective Data
-
Labs:
Laboratory Results
09/06/24
06:38
WBC 5.9
Hgb 14.1
Hct 42.5
Plt Count 107 L
Sodium Pending
Potassium Pending
Chloride Pending
Carbon Dioxide Pending
BUN Pending
Creatinine Pending
Glucose Pending
Calcium Pending
Vital Signs:
Vital Signs
Temp Pulse Resp BP Pulse Ox
97.8 F 59 18 150/71 95
09/06/24 07:08 09/06/24 07:08 09/06/24 07:08 09/06/24 07:08 09/06/24 07:08
I&O
09/05/24 09/06/24 09/07/24
06:59 06:59 06:59
Intake Total 120 / 120
Balance 120 / 120
[2024-09-06 09:44] LABS: Blood Urea Nitrogen 21 mg/dl (9-20); Calcium 8.9 mg/dl (8.4-10.2); Carbon Dioxide 21 mmol/L (22-30); Chloride 110 mmol/L (98-107); Estimated Creatinine Clearance 56 ml/min; Glucose 87 mg/dl (70-99); Magnesium 1.7 mg/dl (1.6-2.3); Potassium 3.9 mmol/L (3.5-5.1); Sodium 144 mmol/L (135-145); eGFR > 60.00
[2024-09-06] MEDS: 0.45%NACL 1000 IV (11:54)
[2024-09-06 15:44] LABS: Glycohemoglobin (HgbA1c) 5.4 % (4.0-5.6)
--- NOTE | 2024-09-06 16:05 | CM ---
senior account manager reviewed patient's chart and met with patient and patient lives with his partner in a 2 story home, patient is independent with adl's and ambulation, patient has a cane and walker that he does not use, patient drives.
PCP: Lorenzo Wallace
[facility]
Plan; Home when stable, no needs.
[2024-09-06] MEDS: LOVENOX 40 MG SC (17:13)
[2024-09-07] MEDS: 0.45%NACL 1000 IV (01:00)
[2024-09-07 03:13] VITALS: BP 168/74
[2024-09-07 07:27] VITALS: BP 168/83
[2024-09-07] MEDS: TOPROL XL 50 MG PO (07:56)
[2024-09-07] MEDS: ALTACE 5 MG PO ×2 (07:56→10:21)
[2024-09-07] MEDS: MOBIC 7.5 MG PO (07:56)
[2024-09-07] MEDS: TRICOR 145 MG PO (07:57)
[2024-09-07] MEDS: PROTONIX 40 MG PO (07:57)
[2024-09-07] MEDS: ZYLOPRIM 300 MG PO (07:57)
[2024-09-07] MEDS: VALTREX 500 MG PO (07:57)
[2024-09-07] MEDS: RESTASIS 0.05% OPHTHALMIC EMULSION 1 DROPS LEFT EYE (07:57)
[2024-09-07] MEDS: ASPIR LOW (ENTERIC COATED) 81 MG PO (07:57)
[2024-09-07] MEDS: ERYTHROMYCIN 0.5% OPHTHALMIC OINTMENT 1 APPLIC LEFT EYE (07:57)
[2024-09-07] MEDS: ZETIA 10 MG PO (07:57)
--- NOTE | 2024-09-07 09:40 | W.PN.HOSP.TC ---
Today's Communication/Plan
-
Cleared by neurology for discharge
Assessment / Plan
Assessment / Plan
HPI: 78-year-old male with a past medical history of CVA, HI, HTN, HL, gout, and GERD presents with altered mental status and tonic-clonic shaking concerning for new onset seizure activity. Patient was helping his sister in law move some boxes.
Family reports patient feeling lightheaded, and lost consciousness. Family said that there was full body shaking movements for 10-15 minutes, followed by 15 minutes of confusion. EMS arrived, found his blood sugar to be 68, which increased to 129
after receiving oral glucose.
# First seizure episode
Head CT neg, brain MRI shows atrophy, cerebral microvascular disease with microhemorrhages
Appreciate neurology input, no clear reason for his seizure episode
Neurology recommends maintain off AED for now
Ordered Ativan 2 mg IV as needed seizure activity
Cleared by neurology for discharge, no driving
#Hypoglycemia
Patient was moving boxes and EMS found his blood sugar to be 60
Fasting blood sugar has been normal at 97, 87
Hemoglobin A1c normal at 5.4
#Elevated prolactin
Neurology rec supportive care if epileptic seizure in absence of pituitary mass
#History of HI
#History of CVA
Continue aspirin, Zetia, Tricor
#Essential hypertension
Continue metoprolol, ramipril
#Hyperlipidemia
Continue Zetia, Tricor
#GERD
Continue PPI
#Gout
Continue allopurinol
#Osteoarthritis of the knees
Continue Mobic
#Obesity due to excess calories
Affects all aspects of care
DVT prophylaxis�subcu Lovenox
Full code
Updated family at bedside 09/07
Physical Exam
General: No acute distress
HEENT: Normocephalic, Atraumatic, EOMI, MMM
Respiratory: Clear to Auscultation bilaterally
Cardiac: Normal S1/S2, Regular Rate and Rhythm
GI: Soft, Nontender, Nondistended, Normal Bowel Sounds
Extremities: No Clubbing, Cyanosis, or Edema
Neuro: Nonfocal/Grossly Intact
Psych: Calm, Cooperative
Derm: No Visible lesions
Anticipated Discharge: Today
Subjective/Interval History
-
Date of Service: September 07, 2024
No recurrence of seizure activity. No fever, no vomiting. No chest pain. Patient feels well, and is eager for discharge.
Objective Data
-
Labs:
Laboratory Results
09/07/24
07:51
Sodium Pending
Potassium Pending
Chloride Pending
Carbon Dioxide Pending
BUN Pending
Creatinine Pending
Glucose Pending
Calcium Pending
Vital Signs:
Vital Signs
Temp Pulse Resp BP Pulse Ox
98.6 F 62 20 168/83 95
09/07/24 07:27 09/07/24 07:27 09/07/24 07:27 09/07/24 07:27 09/07/24 08:00
I&O
09/06/24 09/07/24 09/08/24
06:59 06:59 06:59
Intake Total 120 / 120 2225 / 2225
Balance 120 / 120 2225 / 2225
[2024-09-07 09:57] LABS: Blood Urea Nitrogen 20 mg/dl (9-20); Calcium 9.7 mg/dl (8.4-10.2); Carbon Dioxide 24 mmol/L (22-30); Chloride 105 mmol/L (98-107); Estimated Creatinine Clearance 56 ml/min; Glucose 97 mg/dl (70-99); Magnesium 1.8 mg/dl (1.6-2.3); Phosphorus 2.7 mg/dl (2.5-4.5); Potassium 4.3 mmol/L (3.5-5.1); Sodium 143 mmol/L (135-145); eGFR > 60.00
[2024-09-07 11:18] VITALS: BP 163/73
--- NOTE | 2024-09-07 11:50 | W.DCSUMMARY ---
Discharge Summary
Discharge Data
Date of Admission: 09/05/24
Date of Discharge: 09/07/24
-
Pending Results: No
Hospital Course
Discharge diagnosis:
Fist seizure episode
Hypoglycemia
Elevated prolactin
History of myocardial infarction
History of stroke
Essential hypertension
Hyperlipidemia
Gastroesophageal reflux disease
Obesity due to excess calories
Brain MRI:
Scattered and areas of more confluent T2/FLAIR hyperintensities within the subcortical and periventricular white matter of the bilateral cerebral hemispheres as well as the alvin which is nonspecific, however likely sequelae of moderate small vessel
ischemic disease. Moderate parenchymal volume loss. Prior lacunar infarctions within the left cerebellar hemisphere and bilateral basal ganglia. There are scattered foci of blooming artifact within the bilateral basal ganglia as well as the
bilateral parietal and frontal lobes consistent with prior microhemorrhage.
No acute intracranial abnormality noted.
Moderate atrophy with sequelae of moderate small vessel ischemic disease.
EEG - Mildly abnormal EEG for age in wakefulness through sleep due to mild diffuse bihemispheric slowing, negative for seizures
Hospital course:
78-year-old male with a past medical history of HI, CVA, HTN, HL, GERD, and obesity was brought in by his family after having a witnessed episode of generalized clonic tonic shaking for 10-15 minutes and confusion for 15 minutes. EMS arrived,
finding patient to be hypoglycemic with a blood sugar of 60. He received oral glucose, and his blood sugar improved to 129. Patient did bite his tongue during the episode, denies urinary or fecal incontinence.
Patient was seen in conjunction with neurology. Brain MRI was negative for acute CVA, does show prior infarctions, microhemorrhages. EEG was negative for seizure activity. Neurology recommends maintaining off antiepileptic drugs.
Patient's prolactin was elevated at 26.5. MRI was negative for pituitary adenoma. In the absence of pituitary adenoma, neurology recommends supportive care.
Patient did not have any recurrence of hypoglycemia. His hemoglobin A1c was 5.4. His fasting blood glucose was 87 and 89. Suspect his hypoglycemia was secondary to moving boxes during the time of the event.
Patient did not have any recurrence of seizure activity. He is medically stable and cleared by neurology for discharge. Neurology recommends no antiepileptic drugs upon discharge. He has been instructed to refrain from driving. He needs to
follow-up with his primary care doctor in 1 week, neurology in the office in 4 weeks.
Disposition: Home self-care
Discharge planning: Required 45 minutes
Discharge Plan
-
Patient Disposition: Home (Routine Discharge)
Discharge Diagnosis/Procedures: First episode seizure, hypoglycemia, hypertension
Condition: Good
Diet: Low Fat and Low Cholesterol
Activity: As tolerated
Driving Restrictions: No driving
Activity Restrictions/Additional Instructions:
No driving, neurology will tell you when you can drive again.
Please follow-up with your primary care doctor in 1 week, and neurology in the office in 4 weeks.
Referrals:
Deedee Moncada CRNP [Specified Professional Personl] - in three to four weeks
Lorenzo Wallace DO [Family Provider] - in one week
Prescriptions:
New
ramipril 10 mg Capsule
10 mg PO DAILY Qty: 30 0RF
Continued
metoprolol succinate 50 mg tablet extended release 24 hr
50 mg PO DAILY
valacyclovir 500 mg tablet
500 mg PO DAILY
meloxicam 7.5 mg tablet
7.5 mg PO DAILY
pantoprazole 40 mg tablet,delayed release (DR/EC)
40 mg PO DAILY
erythromycin 5 mg/gram (0.5 %) ointment
1 applic LEFT EYE BID
allopurinol 300 mg tablet
300 mg PO DAILY
ezetimibe 10 mg tablet
10 mg PO DAILY
cyclosporine [Restasis] 0.05 % dropperette
1 drp LEFT EYE BID
omega-3 acid ethyl esters 1 gram capsule
4 g PO DAILY
fenofibrate nanocrystallized 145 mg tablet
145 mg PO DAILY
aspirin 81 mg Tablet,Delayed Release (Dr/Ec)
81 mg PO DAILY
Discontinued
ramipril 5 mg capsule
5 mg PO DAILY
Discharge Orders:
Discharge Patient (As Directed); Ordered 09/07/24
Ordered By: Nick Martines
Discharge Date and Time
Discharge Date/Time: 09/07/24 12:30
Print Language: [email or web address]
--- NOTE | 2024-09-07 12:11 | CM ---
equity manager reviewed patient's chart and patient is for discharge to home today.
Plan; Home no needs.
--- NOTE | 2024-09-07 13:08 | EEG.RPT ---
Electroencephalogram Report
Recording
Date of EE09/06/24
Type of EEG: Routine
Length of EEG recordin minutes
Done with Video Recording: Yes
Patient Status: Inpatient
Recording Conditions: Awake and Drowsy
Hyperventilation Performed: No
Photic Stimulation Performed: Yes
Report
LESS THAN 1 HOUR EEG REPORT
LESS THAN 1 HOUR EEG INTERPRETATION:
Mildly abnormal EEG for age in wakefulness through sleep due to mild diffuse bihemispheric slowing
CLINICAL CORRELATION:
This study was suggestive of mild diffuse cortical dysfunction without focal abnormality. No seizures were recorded.
Clinical correlation is advised.
METHODS:
A 21 channel digitized electroencephalogram (EEG) was performed at the bedside. The 10/20 international system of electrode placement was used with ECG and lateral/vertical eye movements recorded. The [employer] quantitative analysis system was
utilized.
QUALITY OF STUDY:
Good
ELECTROENCEPHALOGRAPHER IMPRESSION(S):
Background
Amplitude: Unremarkable
Anterior-Posterior Organization: Fair, good at times
Maximum: Alpha, usually theta
Asymmetry: None
Sleep
Drowsiness present
Photic Stimulation
Failed to activate the record
ECG
Normal sinus rhythm
== END 2024-09-07 12:30 | disposition home or self-care (01) | DRG 100 ==
LOC: 4 WEST ACU 18:16
PROVIDERS: Physician Assistant; ADMITTING PHYSICIAN Family Medicine; CONSULT PHYSICIAN Psychiatry & Neurology Neurology; EMERGENCY PHYSICIAN Emergency Medicine; FAMILY PHYSICIAN Family Medicine
DX: R56.9 Unspecified convulsions (principal); I61.9 Nontraumatic intracerebral hemorrhage, unspecified; E16.2 Hypoglycemia, unspecified; I10 Essential (primary) hypertension; I67.9 Cerebrovascular disease, unspecified; E78.5 Hyperlipidemia, unspecified; K21.9 Gastro-esophageal reflux disease without esophagitis; I25.2 Old myocardial infarction; I25.10 Atherosclerotic heart disease of native coronary artery without angina pectoris; M17.0 Bilateral primary osteoarthritis of knee; M10.9 Gout, unspecified; E66.09 Other obesity due to excess calories; Z94.7 Corneal transplant status; Z87.891 Personal history of nicotine dependence; Z86.73 Personal history of transient ischemic attack (TIA), and cerebral infarction without residual deficits; Z79.82 Long term (current) use of aspirin; Z79.899 Other long term (current) drug therapy; Z68.30 Body mass index [BMI] 30.0-30.9, adult
CPT/HCPCS: 70450; 70551; 71046; 80048; 80053; 80306; 81003; 81015; 82550; 82962; 83036; 83605; 83735; 84100; 84146; 84484; 85025; 85027; 93005; 95816; 97162; 99285